=== PATIENT | male | born 1990 | race Two or more races ===

== ENCOUNTER 2019-01-27 07:58 | Emergency (ER) | payer OTHER ==
[~2019-01-27] VITALS: Ht 167.6 cm; Wt 73.0 kg
[2019-01-27 10:30] VITALS: BP 110/66
== END 2019-01-27 14:00 | disposition home or self-care (01) ==
LOC: ER 13:31
DX: J20.9 Acute bronchitis, unspecified (principal); Z87.891 Personal history of nicotine dependence
CPT/HCPCS: 99282